=== PATIENT | male | born 1960 | race African-American/Black ===

== ENCOUNTER 2017-03-30 07:57 | Emergency (ER) | payer BC, OTHER ==
[~2017-03-30] VITALS: Ht 182.9 cm; Wt 86.2 kg
[2017-03-30] MEDS ORDERED: NALOXONE HCL 0.4 MG/ML VIAL IV ONE (08:15)
[2017-03-30] MEDS ORDERED: NALOXONE HCL 0.4 MG/ML VIAL ONE (08:43)
[2017-03-30 10:01] LABS: Basophils # (auto) 0.1 uL; Basophils % (auto) 0.6 % (0.0-2.0); DEFINITIVE VIEW TRANSMISSION; Eosinophils # (auto) 0 uL; Eosinophils % (auto) 0.3 % (0.0-7.0); Hematocrit 41.7 % (41.0-53.0); Hemoglobin 13.9 g/dL (13.5-17.5); Lymphocytes # (auto) 2.3 uL; Lymphocytes % (auto) 19.7 % (10.0-50.0); Mean Corpuscular Hemoglobin 33.8 pg (28.0-32.0); Mean Corpuscular Hgb Conc. 33.4 g/dL (32.0-36.0); Mean Platelet Volume 8.1 fL (7.4-10.4); Monocytes # (auto) 1.7 uL; Monocytes % (auto) 14.9 % (0.0-12.0); Neutrophils # (auto) 7.5 uL; Neutrophils % (auto) 64.5 % (37.0-80.0); Platelet Count (auto) 677 10^3/uL (140-450); Red Cell Distribution Width 14.5 % (11.6-16.0); White Blood Cell 11.7 10^3/uL (4.4-10.8)
[2017-03-30] MEDS ORDERED: ETOMIDATE (2MG/ML) 20ML VIAL IV ONE (10:38)
[2017-03-30] MEDS ORDERED: SUCCINYLCHOLINE CHLORIDE 20 MG/ML 10ML VIAL IV ONE (10:38)
[2017-03-30 10:54] LABS: Albumin 2.9 g/dL (3.4-5.0); Alkaline Phosphatase 135 U/L (45-117); Anion Gap 13 (5-15); Aspartate Aminotransferase 45 U/L (15-37); BUN/Creatinine Ratio 10.3; Bilirubin, Total 0.7 mg/dL (0.2-1.0); Blood Urea Nitrogen 7 mg/dL (7-18); Calcium 9.3 mg/dL (8.5-10.1); Carbon Dioxide 25 mmol/L (21-32); Chloride 102 mmol/L (98-107); GFR African American 155 mL/min; GFR Non-African American 128 mL/min; Glucose 155 mg/dL (74-106); Sodium 140 mmol/L (136-145); Total Protein 7.9 g/dL (6.4-8.2)
[2017-03-30 10:57] VITALS: BP 147/97
[2017-03-30] MEDS ORDERED: PROPOFOL 100 ML IV ONE (11:02)
[2017-03-30 11:05] LABS: Potassium 2.9 mmol/L (3.5-5.1)
[2017-03-30] MEDS ORDERED: PROPOFOL 10 MG/ML 20 ML IV ONE (11:15)
== END 2017-03-30 11:20 | disposition short-term general hospital (02) ==
LOC: ER 07:57 → EDBD 07:57 → ER 11:20
DX: G93.41 Metabolic encephalopathy (principal); R41.82 Altered mental status, unspecified; I62.9 Nontraumatic intracranial hemorrhage, unspecified; E11.9 Type 2 diabetes mellitus without complications; I10 Essential (primary) hypertension; E78.5 Hyperlipidemia, unspecified
CPT/HCPCS: 31500; 36415; 51702; 70450; 71010; 80053; 80185; 80320; 82962; 83735; 84484; 85025; 93005; 99291; J0330; J2310; J2704

== ENCOUNTER 2017-04-25 19:19 | Emergency (ER) | payer OTHER ==
[~2017-04-25] VITALS: Ht 182.9 cm; Wt 79.4 kg
[2017-04-25 20:34] LABS: Basophils # (auto) 0.1 uL; Basophils % (auto) 0.9 % (0.0-2.0); Eosinophils # (auto) 0.2 uL; Eosinophils % (auto) 1.1 % (0.0-7.0); Hematocrit 37.4 % (41.0-53.0); Hemoglobin 12.6 g/dL (13.5-17.5); Lymphocytes # (auto) 2.4 uL; Lymphocytes % (auto) 17.6 % (10.0-50.0); Mean Corpuscular Hemoglobin 33.6 pg (28.0-32.0); Mean Corpuscular Hgb Conc. 33.8 g/dL (32.0-36.0); Mean Corpuscular Volume 99.4 fL (80.0-100.0); Mean Platelet Volume 7.2 fL (7.4-10.4); Monocytes # (auto) 1.2 uL; Monocytes % (auto) 9.1 % (0.0-12.0); Neutrophils # (auto) 9.6 uL; Neutrophils % (auto) 71.3 % (37.0-80.0); Platelet Count (auto) 494 10^3/uL (140-450); Red Cell Distribution Width 13.2 % (11.6-16.0); White Blood Cell 13.5 10^3/uL (4.4-10.8)
[2017-04-25 20:59] LABS: Albumin 2.9 g/dL (3.4-5.0); Alkaline Phosphatase 169 U/L (45-117); Anion Gap 8 (5-15); Aspartate Aminotransferase 19 U/L (15-37); BUN/Creatinine Ratio 21.8; Bilirubin, Total 0.2 mg/dL (0.2-1.0); Blood Urea Nitrogen 12 mg/dL (7-18); Calcium 8.6 mg/dL (8.5-10.1); Carbon Dioxide 23 mmol/L (21-32); Chloride 105 mmol/L (98-107); GFR African American 197 mL/min; GFR Non-African American 163 mL/min; Glucose 63 mg/dL (74-106); Magnesium 2.1 mg/dL (1.6-2.6); Potassium 3.8 mmol/L (3.5-5.1); Sodium 136 mmol/L (136-145); Total Protein 7.7 g/dL (6.4-8.2)
[2017-04-25 21:27] LABS: INR 1.12 (0.9-1.15); Prothrombin Time 12.2 sec (9.37-12.3)
[2017-04-25 23:11] VITALS: BP 100/69
== END 2017-04-25 23:18 | disposition short-term general hospital (02) ==
LOC: ER 19:24
DX: I62.9 Nontraumatic intracranial hemorrhage, unspecified (principal); I69.920 Aphasia following unspecified cerebrovascular disease; F17.210 Nicotine dependence, cigarettes, uncomplicated; I10 Essential (primary) hypertension; E11.9 Type 2 diabetes mellitus without complications; E78.5 Hyperlipidemia, unspecified
CPT/HCPCS: 36415; 70450; 80053; 80320; 83735; 84484; 85025; 85610; 85730; 93005

== ENCOUNTER 2017-07-08 20:07 | Emergency (ER) | payer OTHER ==
[~2017-07-08] VITALS: Ht 188 cm; Wt 81.6 kg
[2017-07-08 22:34] LABS: Basophils # (auto) 0.2 uL; Basophils % (auto) 2.6 % (0.0-2.0); CONDITION Y; Eosinophils # (auto) 0.2 uL; Eosinophils % (auto) 2.3 % (0.0-7.0); Hemoglobin 15.5 g/dL (13.5-17.5); Lymphocytes # (auto) 3.4 uL; Lymphocytes % (auto) 40.5 % (10.0-50.0); Mean Corpuscular Hgb Conc. 33.6 g/dL (32.0-36.0); Mean Platelet Volume 8.2 fL (7.4-10.4); Monocytes # (auto) 0.9 uL; Monocytes % (auto) 10.3 % (0.0-12.0); Neutrophils # (auto) 3.8 uL; Neutrophils % (auto) 44.3 % (37.0-80.0); Platelet Count (auto) 315 10^3/uL (140-450); Red Cell Distribution Width 14.2 % (11.6-16.0); White Blood Cell 8.5 10^3/uL (4.4-10.8)
[2017-07-08 22:50] LABS: INR 1.05 (0.9-1.15); Partial Thromboplastin Time 26.6 sec (22.64-33.71); Prothrombin Time 11.5 sec (9.37-12.3)
[2017-07-08 23:10] LABS: Magnesium 2.3 mg/dL (1.6-2.6)
[2017-07-08 23:23] LABS: Albumin 2.6 g/dL (3.4-5.0); Alkaline Phosphatase 105 U/L (45-117); Anion Gap 10 (5-15); Aspartate Aminotransferase 22 U/L (15-37); BUN/Creatinine Ratio 11.7; Bilirubin, Total 0.2 mg/dL (0.2-1.0); Blood Urea Nitrogen 7 mg/dL (7-18); Calcium 8.1 mg/dL (8.5-10.1); Carbon Dioxide 25 mmol/L (21-32); Chloride 109 mmol/L (98-107); GFR African American 179 mL/min; GFR Non-African American 148 mL/min; Glucose 114 mg/dL (74-106); Potassium 3.1 mmol/L (3.5-5.1); Sodium 144 mmol/L (136-145); Total Protein 7.5 g/dL (6.4-8.2)
[2017-07-08 23:48] VITALS: BP 125/77
== END 2017-07-09 00:30 | disposition home or self-care (01) ==
LOC: EDBD 20:07 → ER 20:07 → EDUNIT# 20:07 → ER 07-09 00:29
DX: G45.9 Transient cerebral ischemic attack, unspecified (principal); E11.9 Type 2 diabetes mellitus without complications; E78.5 Hyperlipidemia, unspecified; I10 Essential (primary) hypertension; F17.210 Nicotine dependence, cigarettes, uncomplicated; R41.82 Altered mental status, unspecified; R41.0 Disorientation, unspecified
CPT/HCPCS: 36415; 70450; 71010; 80053; 83735; 84484; 85025; 85610; 85730; 93005

== ENCOUNTER 2017-10-12 09:39 | Emergency (ER) | payer OTHER ==
[~2017-10-12] VITALS: Ht 180.3 cm; Wt 90.7 kg
[2017-10-12 10:46] LABS: Albumin 3.7 g/dL (3.4-5.0); Anion Gap 11 (5-15); Aspartate Aminotransferase 172 U/L (15-37); BUN/Creatinine Ratio 18.1; Blood Urea Nitrogen 13 mg/dL (7-18); Calcium 9.4 mg/dL (8.5-10.1); Carbon Dioxide 22 mmol/L (21-32); Chloride 102 mmol/L (98-107); GFR African American 144 mL/min; GFR Non-African American 119 mL/min; Glucose 189 mg/dL (74-106); Magnesium 1.7 mg/dL (1.6-2.6); Potassium 3.9 mmol/L (3.5-5.1); Sodium 135 mmol/L (136-145)
[2017-10-12 10:51] LABS: Alkaline Phosphatase 128 U/L (45-117); Bilirubin, Total 1.2 mg/dL (0.2-1.0)
[2017-10-12 11:28] LABS: Basophils # (auto) 0 uL; Basophils % (auto) 0.4 % (0.0-2.0); Eosinophils # (auto) 0 uL; Eosinophils % (auto) 0.2 % (0.0-7.0); Hematocrit 48.4 % (41.0-53.0); Hemoglobin 15.8 g/dL (13.5-17.5); Lymphocytes # (auto) 0.8 uL; Lymphocytes % (auto) 8.8 % (10.0-50.0); Mean Corpuscular Hemoglobin 34.6 pg (28.0-32.0); Mean Corpuscular Hgb Conc. 32.7 g/dL (32.0-36.0); Mean Corpuscular Volume 105.6 fL (80.0-100.0); Mean Platelet Volume 8.6 fL (6.9-10.8); Monocytes # (auto) 0.9 uL; Monocytes % (auto) 9.9 % (0.0-12.0); Neutrophils # (auto) 7.5 uL; Neutrophils % (auto) 80.7 % (37.0-80.0); Nucleated Red Blood Cells % 0.1 %; Platelet Count (auto) 155 10^3/uL (140-450); White Blood Cell 9.3 10^3/uL (4.4-10.8)
[2017-10-12 11:30] LABS: Urine RBC None Seen /hpf (0 - 3)
[2017-10-12 11:42] LABS: Urine Bilirubin Negative (Negative); Urine Blood 1+ /uL (Negative); Urine Color Yellow (Yellow); Urine Glucose 3+ mg/dL (Normal); Urine Hyaline Cast FEW /lpf (0 - 2); Urine Ketone 1+ (Negative); Urine Nitrite Negative (Negative); Urine Urobilinogen Normal (Negative); Urine pH 5.5 (5.0-8.0)
[2017-10-12 12:23] VITALS: BP 148/83
== END 2017-10-12 12:27 | disposition home or self-care (01) ==
LOC: ER 09:39 → EDBD 09:39 → ER 12:27
DX: G45.9 Transient cerebral ischemic attack, unspecified (principal); E86.0 Dehydration; E11.9 Type 2 diabetes mellitus without complications; E78.5 Hyperlipidemia, unspecified; I10 Essential (primary) hypertension; F17.210 Nicotine dependence, cigarettes, uncomplicated
CPT/HCPCS: 36415; 70450; 71010; 80053; 80307; 81001; 83735; 84484; 93005

== ENCOUNTER 2018-08-23 10:10 | Emergency (ER) | payer OTHER ==
[~2018-08-23] VITALS: Ht 190.5 cm; Wt 81.6 kg
[2018-08-23] MEDS ORDERED: SODIUM CHLORIDE 0.9% 1,000 ML IV ONE (10:16)
[2018-08-23 10:54] LABS: Basophils # (auto) 0 uL; Basophils % (auto) 0.1 % (0.0-2.0); Eosinophils # (auto) 0 uL; Hematocrit 49.4 % (41.0-53.0); Hemoglobin 16.5 g/dL (13.5-17.5); Lymphocytes # (auto) 0.4 uL; Lymphocytes % (auto) 2.6 % (10.0-50.0); Mean Corpuscular Hemoglobin 33.6 pg (28.0-32.0); Mean Corpuscular Hgb Conc. 33.4 g/dL (32.0-36.0); Mean Corpuscular Volume 100.7 fL (80.0-100.0); Monocytes % (auto) 6.8 % (0.0-12.0); Neutrophils # (auto) 13.2 uL; Neutrophils % (auto) 90.5 % (37.0-80.0); Nucleated Red Blood Cells % 0.1 %; Platelet Count (auto) 177 10^3/uL (140-450); Red Blood Cells 4.91 10^6/uL (4.5-5.90); Red Cell Distribution Width 13.7 % (11.8-14.3); White Blood Cell 14.6 10^3/uL (4.4-10.8)
[2018-08-23 11:17] LABS: Alanine Aminotransferase 86 U/L (16-61); Albumin 3.9 g/dL (3.4-5.0); Alkaline Phosphatase 121 U/L (45-117); Anion Gap 15 (5-15); Aspartate Aminotransferase 158 U/L (15-37); BUN/Creatinine Ratio 6.5; Bilirubin, Total 0.8 mg/dL (0.2-1.0); Blood Alcohol < 3.0 mg/dL (0-5); Blood Urea Nitrogen 8 mg/dL (7-18); Carbon Dioxide 16 mmol/L (21-32); Chloride 109 mmol/L (98-107); GFR African American 78 mL/min; GFR Non-African American 64 mL/min; Glucose 215 mg/dL (74-106); Potassium 3.9 mmol/L (3.5-5.1); Sodium 140 mmol/L (136-145); Total Protein 8.6 g/dL (6.4-8.2)
[2018-08-23 12:13] LABS: Urine WBC None Seen /hpf (0 - 3)
[2018-08-23] MEDS ORDERED: LABETALOL HCL 5 MG/ML ML 20ML VIAL IV ONE (12:15)
[2018-08-23 12:38] VITALS: BP 136/90
[2018-08-23 12:41] LABS: Alcohol, Urine < 3.0 mg/dL (0-5); Amphetamine Screen, Urine NEGATIVE (NEGATIVE); Barbiturate Scree,Urine NEGATIVE (NEGATIVE); Benzodiazephine Screen, Urine NEGATIVE (NEGATIVE); Cannabinoid Screen, Urine NEGATIVE (NEGATIVE); Cocaine Screen, Urine NEGATIVE (NEGATIVE); Opiate Scree,Urine NEGATIVE (NEGATIVE); Phencyclidine Screen, Urine NEGATIVE (NEGATIVE)
[2018-08-23 12:53] LABS: Urine Bacteria NONE SEEN /hpf (None Seen); Urine Blood TRACE /uL (Negative); Urine Specific Gravity 1.015 (1.001-1.035)
== END 2018-08-23 12:49 | disposition short-term general hospital (02) ==
LOC: EDBD 10:10 → ER 10:10
DX: S00.81XA Abrasion of other part of head, initial encounter (principal); I63.9 Cerebral infarction, unspecified; M25.532 Pain in left wrist; R53.1 Weakness; E11.9 Type 2 diabetes mellitus without complications; E78.5 Hyperlipidemia, unspecified; I10 Essential (primary) hypertension; R51 Headache; F10.10 Alcohol abuse, uncomplicated; F17.210 Nicotine dependence, cigarettes, uncomplicated; W19.XXXA Unspecified fall, initial encounter; Y93.89 Activity, other specified; Y92.89 Other specified places as the place of occurrence of the external cause; Y99.8 Other external cause status
CPT/HCPCS: 36415; 70450; 73030; 73100; 80053; 80307; 80320; 81001; 85025; 94761; 96374

== ENCOUNTER 2018-11-17 11:56 | Inpatient (IN) | payer SELFPAY ==
[~2018-11-17] VITALS: Ht 182.9 cm; Wt 79.4 kg
[2018-11-17] MEDS ORDERED: SODIUM CHLORIDE 0.9% 1,000 ML IVB ONE (12:57)
[2018-11-17 13:08] LABS: Basophils # (auto) 0 uL; Basophils % (auto) 0.3 % (0.0-2.0); Eosinophils # (auto) 0 uL; Lymphocytes # (auto) 0.4 uL; Neutrophils # (auto) 11.1 uL
[2018-11-17 13:10] LABS: Hematocrit 49.9 % (41.0-53.0); Hemoglobin 16.5 g/dL (13.5-17.5); Lymphocytes % (auto) 3.2 % (10.0-50.0); Mean Corpuscular Hemoglobin 34.9 pg (28.0-32.0); Mean Corpuscular Volume 105.8 fL (80.0-100.0); Monocytes # (auto) 0.6 uL; Neutrophils % (auto) 91.5 % (37.0-80.0); Nucleated Red Blood Cells % 0.1 %; Platelet Count (auto) 143 10^3/uL (140-450); Red Blood Cells 4.72 10^6/uL (4.5-5.90); Red Cell Distribution Width 13.6 % (11.8-14.3); White Blood Cell 12.1 10^3/uL (4.4-10.8)
[2018-11-17 13:31] LABS: Alanine Aminotransferase 64 U/L (16-61); Albumin 4.3 g/dL (3.4-5.0); Anion Gap 20 (5-15); Aspartate Aminotransferase 84 U/L (15-37); BUN/Creatinine Ratio 7.4; Blood Alcohol < 3.0 mg/dL (0-5); Blood Urea Nitrogen 10 mg/dL (7-18); Calcium 9.1 mg/dL (8.5-10.1); Carbon Dioxide 16 mmol/L (21-32); Chloride 102 mmol/L (98-107); GFR African American 69 mL/min; GFR Non-African American 57 mL/min; Glucose 205 mg/dL (74-106); Potassium 3.8 mmol/L (3.5-5.1); Sodium 138 mmol/L (136-145)
[2018-11-17 13:36] LABS: Alkaline Phosphatase 132 U/L (45-117); Bilirubin, Total 0.8 mg/dL (0.2-1.0)
[2018-11-17 14:11] LABS: Urine Bacteria NONE SEEN /hpf (None Seen); Urine Blood 2+ /uL (Negative); Urine Hyaline Cast FEW /lpf (0 - 2); Urine Mucus FEW (None Seen); Urine Specific Gravity 1.011 (1.001-1.035); Urine WBC 2 /hpf (0 - 3)
[2018-11-17 14:23] LABS: Alcohol, Urine < 3.0 mg/dL (0-5); Amphetamine Screen, Urine NEGATIVE (NEGATIVE); Barbiturate Scree,Urine NEGATIVE (NEGATIVE); Benzodiazephine Screen, Urine NEGATIVE (NEGATIVE); Cannabinoid Screen, Urine NEGATIVE (NEGATIVE); Cocaine Screen, Urine NEGATIVE (NEGATIVE); Opiate Scree,Urine NEGATIVE (NEGATIVE); Phencyclidine Screen, Urine NEGATIVE (NEGATIVE)
[2018-11-17 14:23] LABS: INR 1.05 (0.9-1.15); Partial Thromboplastin Time 27.2 sec (23.78-33.04); Prothrombin Time 11.2 sec (9.27-12.13)
[2018-11-17] MEDS ORDERED: chlordiazePOXIDE HCL 25 MG CAP PO PRN (14:45)
[2018-11-17] MEDS ORDERED: LABETALOL HCL 5 MG/ML ML 20ML VIAL IV PRN (14:45)
[2018-11-17] MEDS ORDERED: LACTULOSE 20Gm/30ML SOLN PO PRN (14:45)
[2018-11-17] MEDS ORDERED: PROMETHAZINE HCL 25 MG/ML 1ML IV PRN (14:45)
[2018-11-17] MEDS ORDERED: NITROGLYCERIN 0.4 MG SL TAB SL PRN (14:45)
[2018-11-17] MEDS ORDERED: TEMAZEPAM 15 MG CAP PO PRN (14:45)
[2018-11-17] MEDS ORDERED: MORPHINE SULFATE 4 MG/ML SYR/VIAL IV PRN ×3 (14:45)
[2018-11-17] MEDS ORDERED: THIAMINE 100mg/ml INJ (200mg/2ml VIAL) IV ONE (14:45)
[2018-11-17] MEDS ORDERED: LORazepam 0.5 MG TAB PO PRN ×2 (14:45→18:45)
[2018-11-17] MEDS ORDERED: LORazepam 2MG/ML-1ML VIAL IV PRN (14:45)
[2018-11-17] MEDS ORDERED: DEXTROSE (50%) 50ML SYRG IV PRN (14:45)
[2018-11-17 15:22] LABS: Folate (Folic Acid) 10.62 ng/mL (5.38-24)
[2018-11-17 15:25] LABS: Cholesterol 294 mg/dL (< 200)
[2018-11-17 15:28] LABS: Creatine Kinase IFCC 384 U/L (39-308); HDL Cholesterol 112 mg/dL (40-59); LDL Cholesterol 165 mg/dL (< 100); Triglycerides 137 mg/dL (< 150)
[2018-11-17] MEDS: SODIUM CHLORIDE 0.9% 1,000 ML IV SCH (16:50)
[2018-11-17] MEDS: ACCU-CHEK COMFORT CURVE STRIP VI SCH ×2 (17:36→22:00)
[2018-11-17] MEDS: InsuLIN REG 1unit/0.01ml Soln (100units/ml) SC SCH ×2 (17:40→22:00)
[2018-11-17] MEDS: chlordiazePOXIDE HCL 5 MG CAP PO SCH (17:56)
[2018-11-17] MEDS ORDERED: LEVETIRACETAM INJ 1,000 MG in D5W 5% 100 ML IV ONE (18:45)
[2018-11-17] MEDS ORDERED: ATORVASTATIN 20 MG TAB PO SCH (22:00)
[2018-11-17] MEDS: LEVETIRACETAM 500 MG TAB PO SCH (22:00)
[2018-11-18] MEDS: chlordiazePOXIDE HCL 5 MG CAP PO SCH ×3 (00:13→12:09)
[2018-11-18] MEDS: SODIUM CHLORIDE 0.9% 1,000 ML IV SCH ×2 (00:40→11:13)
[2018-11-18 05:58] LABS: Basophils # (auto) 0 uL; Eosinophils # (auto) 0 uL; Eosinophils % (auto) 0.5 % (0.0-7.0); Hemoglobin 14.6 g/dL (13.5-17.5); Mean Corpuscular Hemoglobin 35.5 pg (28.0-32.0); Monocytes # (auto) 0.8 uL; Neutrophils # (auto) 5.8 uL
[2018-11-18 06:02] VITALS: BP 109/76
[2018-11-18 06:02] LABS: Basophils % (auto) 0.5 % (0.0-2.0); Hematocrit 41.9 % (41.0-53.0); Lymphocytes # (auto) 1.2 uL; Mean Corpuscular Hgb Conc. 34.7 g/dL (32.0-36.0); Mean Corpuscular Volume 102.3 fL (80.0-100.0); Monocytes % (auto) 10.1 % (0.0-12.0); Neutrophils % (auto) 73.9 % (37.0-80.0); Platelet Count (auto) 102 10^3/uL (140-450); Red Cell Distribution Width 13.2 % (11.8-14.3); White Blood Cell 7.8 10^3/uL (4.4-10.8)
[2018-11-18 06:25] LABS: Potassium 3.1 mmol/L (3.5-5.1)
[2018-11-18 06:32] LABS: Albumin 3.4 g/dL (3.4-5.0); BUN/Creatinine Ratio 13.8; Bilirubin, Total 1.9 mg/dL (0.2-1.0); Calcium 8.4 mg/dL (8.5-10.1)
[2018-11-18] MEDS: InsuLIN REG 1unit/0.01ml Soln (100units/ml) SC SCH ×3 (06:35→16:58)
[2018-11-18] MEDS: ACCU-CHEK COMFORT CURVE STRIP VI SCH ×3 (06:35→16:58)
[2018-11-18] MEDS: LEVETIRACETAM 500 MG TAB PO SCH (09:51)
[2018-11-18] MEDS ORDERED: PANTOPRAZOLE 40 MG TAB PO SCH (10:00)
[2018-11-18] MEDS ORDERED: ASPirin 81 mg TAB PO SCH (10:00)
[2018-11-18] MEDS ORDERED: ENOXAPARIN SOD 40 MG/0.4 ML SYRINGE SC SCH (10:00)
[2018-11-18] MEDS ORDERED: THIAMINE 100mg/ml INJ (200mg/2ml VIAL) IV SCH (10:00)
--- NOTE | 2018-11-18 12:30 | NUR ---
PER ADMITTING AND [facility] PATIENT'S INSURANCE TERMED ON 09-30-2018.
--- NOTE | 2018-11-18 15:20 | NUR ---
EEG COMPLETED AT BEDSIDE. RN JROD x [phone] NOTIFIED.
--- NOTE | 2018-11-18 17:29 | NUR ---
PT DECLINED P.T. BECAUSE HE WAS BEING DISCHARGED HOME.
--- NOTE | 2018-11-18 18:10 | NUR ---
Discharge instructions given as ordered. Encourage to follow up with PMD as instructed. All questions and concerns addressed. Patient verbalized understanding. Medication reconciliation form completed and copy given to patient. IV removed with catheter intact, pressure dressing applied, zendejas catheter removed. Telemetry unit returned to ICU. Patient taken to vehicle via wheelchair with all personal belongings, accompanied by staff and family member. No distress noted at time of departure.
== END 2018-11-18 18:00 | disposition home health service (06) | DRG 101 ==
LOC: EDBD 11:56 → ER 12:00 → TELE 14:36 → TELE-CENTR 11-18 08:20
PROVIDERS: ADMIT Internal Medicine; ATTEND Internal Medicine
DX: G40.401 Other generalized epilepsy and epileptic syndromes, not intractable, with status epilepticus (principal); N17.9 Acute kidney failure, unspecified; I69.351 Hemiplegia and hemiparesis following cerebral infarction affecting right dominant side; D72.829 Elevated white blood cell count, unspecified; I10 Essential (primary) hypertension; E78.5 Hyperlipidemia, unspecified; E86.0 Dehydration; F10.20 Alcohol dependence, uncomplicated; E11.9 Type 2 diabetes mellitus without complications
CPT/HCPCS: 36415; 70450; 71045; 80053; 80061; 80307; 80320; 81001; 82550; 82607; 82746; 82962; 83036; 83735; 84443; 84484; 85025; 85610; 85730; 93005; 93306; 93886; 94761; 95819; G0378; J1815; J7060

== ENCOUNTER 2018-12-26 10:01 | Emergency (ER) | payer SELFPAY ==
[~2018-12-26] VITALS: Ht 185.4 cm; Wt 83.9 kg
[2018-12-26] MEDS ORDERED: LORazepam 2MG/ML-1ML VIAL ONE (10:31)
[2018-12-26] MEDS ORDERED: SODIUM CHLORIDE 0.9% 500 ML IVB ONE (10:32)
[2018-12-26] MEDS ORDERED: LORazepam 2MG/ML-1ML VIAL IV ONE (10:45)
[2018-12-26] MEDS ORDERED: LEVETIRACETAM INJ 1,000 MG in D5W 5% 100 ML IV ONE (10:45)
[2018-12-26 11:06] LABS: Eosinophils # (auto) 0 uL; Hemoglobin 15.9 g/dL (13.5-17.5); Lymphocytes # (auto) 0.8 uL
[2018-12-26 11:07] LABS: Basophils # (auto) 0.1 uL; Basophils % (auto) 0.7 % (0.0-2.0); Hematocrit 47.2 % (41.0-53.0); Lymphocytes % (auto) 11.7 % (10.0-50.0); Mean Corpuscular Hemoglobin 35.7 pg (28.0-32.0); Mean Corpuscular Hgb Conc. 33.6 g/dL (32.0-36.0); Mean Corpuscular Volume 106.1 fL (80.0-100.0); Monocytes # (auto) 0.8 uL; Monocytes % (auto) 10.9 % (0.0-12.0); Neutrophils # (auto) 5.4 uL; Neutrophils % (auto) 76.7 % (37.0-80.0); Nucleated Red Blood Cells % 0.1 %; Platelet Count (auto) 133 10^3/uL (140-450); Red Blood Cells 4.45 10^6/uL (4.5-5.90); Red Cell Distribution Width 13.8 % (11.8-14.3); White Blood Cell 7.1 10^3/uL (4.4-10.8)
[2018-12-26 11:15] LABS: Alanine Aminotransferase 315 U/L (16-61); Albumin 3.8 g/dL (3.4-5.0); Anion Gap 26 (5-15); Blood Urea Nitrogen 11 mg/dL (7-18); Calcium 8.8 mg/dL (8.5-10.1); Carbon Dioxide 12 mmol/L (21-32); Chloride 98 mmol/L (98-107); Glucose 168 mg/dL (74-106); Magnesium 2.1 mg/dL (1.6-2.6); Potassium 3.5 mmol/L (3.5-5.1); Sodium 136 mmol/L (136-145)
[2018-12-26 11:19] LABS: INR 1.06 (0.9-1.15); Partial Thromboplastin Time 22.6 sec (23.78-33.04); Prothrombin Time 11.3 sec (9.27-12.13)
[2018-12-26 11:21] LABS: Alkaline Phosphatase 173 U/L (45-117); Aspartate Aminotransferase 719 U/L (15-37); BUN/Creatinine Ratio 11.3; Bilirubin, Total 1.5 mg/dL (0.2-1.0); GFR African American 102 mL/min; GFR Non-African American 84 mL/min; Total Protein 8.2 g/dL (6.4-8.2)
== END 2018-12-26 13:25 | disposition home or self-care (01) ==
LOC: EDBD 10:01 → ER 10:03
DX: R56.9 Unspecified convulsions (principal); F10.920 Alcohol use, unspecified with intoxication, uncomplicated; I10 Essential (primary) hypertension; F17.210 Nicotine dependence, cigarettes, uncomplicated; Y90.0 Blood alcohol level of less than 20 mg/100 ml
CPT/HCPCS: 36415; 70450; 71045; 80053; 80320; 83735; 84484; 85025; 85610; 85730; 94761; 96361; 96365; 96375; 99284; J1953; J2060; J7030; J7060

== ENCOUNTER 2019-01-27 10:25 | Emergency (ER) | payer MEDICAID, OTHER ==
[~2019-01-27] VITALS: Ht 185.4 cm; Wt 2.7 kg
[2019-01-27 12:48] VITALS: BP 130/96
== END 2019-01-27 13:23 | disposition home or self-care (01) ==
LOC: ER 10:25
DX: S62.306A Unspecified fracture of fifth metacarpal bone, right hand, initial encounter for closed fracture (principal); S62.644A Nondisplaced fracture of proximal phalanx of right ring finger, initial encounter for closed fracture; E78.5 Hyperlipidemia, unspecified; I10 Essential (primary) hypertension; F17.210 Nicotine dependence, cigarettes, uncomplicated; W19.XXXA Unspecified fall, initial encounter; Y93.89 Activity, other specified; Y99.8 Other external cause status; Y92.89 Other specified places as the place of occurrence of the external cause
CPT/HCPCS: 29125; 36415; 73130; 84550

== ENCOUNTER 2019-04-08 20:26 | Inpatient (IN) | payer MEDICAID ==
[~2019-04-08] VITALS: Ht 223.5 cm; Wt 79.5 kg
[2019-04-08 22:54] LABS: Basophils # (auto) 0 uL; Basophils % (auto) 0.1 % (0.0-2.0); Eosinophils # (auto) 0 uL; Monocytes # (auto) 0.9 uL; Monocytes % (auto) 9.8 % (0.0-12.0); Red Blood Cells 4.37 10^6/uL (4.5-5.90)
[2019-04-08 22:57] LABS: Hematocrit 46.6 % (41.0-53.0); Hemoglobin 15.7 g/dL (13.5-17.5); Lymphocytes # (auto) 0.4 uL; Lymphocytes % (auto) 3.9 % (10.0-50.0); Mean Corpuscular Hemoglobin 35.9 pg (28.0-32.0); Mean Corpuscular Hgb Conc. 33.6 g/dL (32.0-36.0); Mean Corpuscular Volume 106.8 fL (80.0-100.0); Neutrophils # (auto) 8.1 uL; Neutrophils % (auto) 86.2 % (37.0-80.0); Nucleated Red Blood Cells % 0.1 %; Platelet Count (auto) 129 10^3/uL (140-450); White Blood Cell 9.4 10^3/uL (4.4-10.8)
[2019-04-08 23:14] LABS: Albumin 3.8 g/dL (3.4-5.0); Calcium 9.2 mg/dL (8.5-10.1); Potassium 3.9 mmol/L (3.5-5.1)
[2019-04-08 23:17] LABS: BUN/Creatinine Ratio 9.4; Bilirubin, Total 1.3 mg/dL (0.2-1.0); Total Protein 8.1 g/dL (6.4-8.2)
[2019-04-09] MEDS ORDERED: SODIUM CHLORIDE 0.9% 500 ML IV ONE (00:17)
[2019-04-09] MEDS ORDERED: LORazepam 2MG/ML-1ML VIAL IV ONE (00:30)
[2019-04-09] MEDS ORDERED: LEVETIRACETAM 500 MG TAB PO ONE (00:30)
[2019-04-09] MEDS ORDERED: NEOMYCIN-BACITRACIN-POLYM 15GM TOP OINT TOP SCH (00:30)
[2019-04-09] MEDS ORDERED: THIAMINE 100mg/ml INJ (200mg/2ml VIAL) IV ONE (00:30)
[2019-04-09] MEDS ORDERED: LACTULOSE 20Gm/30ML SOLN PO ONE (05:15)
[2019-04-09 05:17] LABS: Urine Bacteria NONE SEEN /hpf (None Seen); Urine Blood 1+ /uL (Negative); Urine Specific Gravity 1.012 (1.001-1.035); Urine WBC 3 /hpf (0 - 3)
[2019-04-09] MEDS ORDERED: TEMAZEPAM 15 MG CAP PO PRN (05:30)
[2019-04-09] MEDS ORDERED: LORazepam 2MG/ML-1ML VIAL IV PRN (05:30)
[2019-04-09] MEDS ORDERED: ONDANSETRON HCL 4 MG/2 ML VIAL IV PRN (05:30)
[2019-04-09 07:19] VITALS: BP 112/75
[2019-04-09 08:00] VITALS: BP 127/73
--- NOTE | 2019-04-09 08:00 | NUR ---
Opening Shift Note Assumed care of patient, awake and alert to self and place. No S/S of distress/SOB or pain. Patient appears confused to situation, keeps taking clothes off and getting out of bed. Patient oriented to room and call light and encouraged to call if he needs anything. Instructed on POC and to call for assist PRN, will continue to monitor for changes Q1hr and PRN. Bed alarm on.
[2019-04-09] MEDS: LACTULOSE 20Gm/30ML SOLN PO SCH (10:00)
[2019-04-09] MEDS ORDERED: NEOMYCIN-BACITRACIN-POLYM 15GM TOP OINT TOP ONE (10:45)
[2019-04-09] MEDS: FAMOTIDINE 20 MG TAB PO SCH ×2 (10:54→22:09)
[2019-04-09] MEDS: amLODIPine BESYLATE 5 MG TAB PO SCH (10:54)
[2019-04-09] MEDS: LEVETIRACETAM 500 MG TAB PO SCH ×2 (10:54→22:09)
--- NOTE | 2019-04-09 11:15 | NUR ---
Family member at bedside.
[2019-04-09 13:00] VITALS: BP 128/91
[2019-04-09 17:01] VITALS: BP 121/72
--- NOTE | 2019-04-09 18:20 | NUR ---
Rounding Dr. Kuo at bedside.
--- NOTE | 2019-04-09 19:00 | NUR ---
Opening Shift Note Assumed care of patient, awake, alert and oriented x2. Sitter and family on bedside. No S/S of distress/SOB or pain. Instructed sitter and family on POC and to call for assist PRN Will continue to monitor for changes Q1hr and PRN.
[2019-04-09 20:06] LABS: Amphetamine Screen, Urine NEGATIVE (NEGATIVE); Barbiturate Scree,Urine NEGATIVE (NEGATIVE); Benzodiazephine Screen, Urine NEGATIVE (NEGATIVE); Cannabinoid Screen, Urine NEGATIVE (NEGATIVE); Cocaine Screen, Urine NEGATIVE (NEGATIVE); Opiate Scree,Urine NEGATIVE (NEGATIVE); Phencyclidine Screen, Urine NEGATIVE (NEGATIVE)
[2019-04-09 22:00] VITALS: BP 114/81
[2019-04-10 05:00] VITALS: BP 133/95
--- NOTE | 2019-04-10 07:50 | NUR ---
Opening Shift Note Assumed care of patient, awake and alert to person, place, and time. No S/S of distress/SOB or pain. Instructed on POC and to call for assist PRN, will continue to monitor for changes Q1hr and PRN. Sitter at bedside.
[2019-04-10 08:28] LABS: Hemoglobin 15.5 g/dL (13.5-17.5); Neutrophils # (auto) 4.2 uL; Nucleated Red Blood Cells % 0.1 %
[2019-04-10 08:30] LABS: Basophils # (auto) 0 uL; Basophils % (auto) 0.6 % (0.0-2.0); Eosinophils # (auto) 0.1 uL; Eosinophils % (auto) 0.8 % (0.0-7.0); Hematocrit 45.3 % (41.0-53.0); Lymphocytes # (auto) 1.3 uL; Lymphocytes % (auto) 19.4 % (10.0-50.0); Mean Corpuscular Hemoglobin 35.9 pg (28.0-32.0); Mean Corpuscular Hgb Conc. 34.2 g/dL (32.0-36.0); Mean Corpuscular Volume 105.1 fL (80.0-100.0); Monocytes % (auto) 15.7 % (0.0-12.0); Neutrophils % (auto) 63.5 % (37.0-80.0); Platelet Count (auto) 117 10^3/uL (140-450); Red Blood Cells 4.31 10^6/uL (4.5-5.90); Red Cell Distribution Width 12.8 % (11.8-14.3); White Blood Cell 6.6 10^3/uL (4.4-10.8)
[2019-04-10 08:48] LABS: BUN/Creatinine Ratio 12.5; Calcium 9.2 mg/dL (8.5-10.1); Potassium 3.3 mmol/L (3.5-5.1)
[2019-04-10 09:00] VITALS: BP 131/84
[2019-04-10] MEDS: LEVETIRACETAM 500 MG TAB PO SCH ×2 (09:41→22:06)
[2019-04-10] MEDS: FAMOTIDINE 20 MG TAB PO SCH ×2 (09:41→22:06)
[2019-04-10] MEDS: amLODIPine BESYLATE 5 MG TAB PO SCH (09:44)
[2019-04-10] MEDS: LACTULOSE 20Gm/30ML SOLN PO SCH (09:45)
--- NOTE | 2019-04-10 09:45 | NUR ---
Family members at bedside.
[2019-04-10] MEDS ORDERED: LACTULOSE 20Gm/30ML SOLN PO ONE (15:45)
[2019-04-10 17:35] VITALS: BP 116/92
--- NOTE | 2019-04-10 18:28 | NUR ---
Tele Psych Consult at bedside. She is requesting to be here for tele psych consult. She can be available anytime after 0800am.
--- NOTE | 2019-04-10 18:40 | NUR ---
Hospitalist Paged Hospitalist paged because patient is very confused and is trying to leave the room. at bedside and is unable to calm patient down. He is verbally abusive and is not listening or following instructions.
[2019-04-10] MEDS ORDERED: LORazepam 2MG/ML-1ML VIAL IV ONE ×2 (18:45→20:45)
--- NOTE | 2019-04-10 18:45 | NUR ---
Verbal Order Verbal order received from Dr. Matson for Ativan 1mg IV stat. Order read back and verified. Entered in
--- NOTE | 2019-04-10 19:10 | NUR ---
Patient more calm at this time. Sitting up at side of bed eating. and sitter in attendance.
--- NOTE | 2019-04-10 19:15 | NUR ---
Closing Note Care endorses to production shift supervisor RN.
--- NOTE | 2019-04-10 19:16 | NUR ---
Opening Shift Note Assumed care of patient, awake and confused. No S/S of distress/SOB or pain. Family and sitter on bedside Instructed sitter and family on POC and to call for assist PRN.Will continue to monitor for changes Q1hr and PRN.
--- NOTE | 2019-04-10 20:00 | NUR ---
Sitter is calling for help The patient is confused and non compliant trying to go out of the room. Reoriented pt and persuaded to lay in the bed.
--- NOTE | 2019-04-10 20:15 | NUR ---
Pt continue to be disoriented, pulling on his iv tube and trying to escape to the floor. Per charge nurse moved the patient to room 212B
--- NOTE | 2019-04-10 20:25 | NUR ---
Pt continuing to be non compliant, trying to escape to the floor. Security was called and hospitalist was paged. T98.2,BP 123/86, HR 117, RR17 SPO2 100%
[2019-04-10] MEDS ORDERED: diphenhdrAMINE HCL 50 MG/1 ML VL IV ONE (20:45)
--- NOTE | 2019-04-10 20:45 | NUR ---
Received and implemented orders from hospitalist.
--- NOTE | 2019-04-10 21:13 | NUR ---
Medication: Patient is restless and anxious. Tried to re-orient patient but patient unable to comprehend. Ativan 1 mg IV given per MD order.Will continue to monitor.
--- NOTE | 2019-04-10 21:50 | NUR ---
Pt still noncompliant and agitated trying to leave the bed and being at risk of fall. Paged hospitalist
[2019-04-10 22:00] VITALS: BP 125/92
--- NOTE | 2019-04-10 22:05 | NUR ---
Received order from hospitalist for Haldol 5 mg IM
--- NOTE | 2019-04-10 22:11 | NUR ---
5 mg Haldol IM given
[2019-04-10] MEDS ORDERED: HALOPERIDOL LACTATE 5 MG/ML INJ VIAL IM ONE (22:15)
[2019-04-10] MEDS ORDERED: LORazepam 2MG/ML-1ML VIAL IV PRN (22:45)
[2019-04-10] MEDS ORDERED: diphenhdrAMINE HCL 50 MG/1 ML VL IV PRN (22:45)
--- NOTE | 2019-04-10 22:45 | NUR ---
PRN orders were obtained. Pt continuing to be agitated and trying to go out of room . Pt at fall risk
--- NOTE | 2019-04-10 22:59 | NUR ---
Pt continuing to be agitated and confused.Sitter on bedside Reoriented and helped the pt to the bed. Soft MS restraint order was obtained from hospitalist.
--- NOTE | 2019-04-10 23:00 | NUR ---
Pt. placed in soft restraints Restraints placed,Pt. placed in soft restraints ALLYSON RODRIGUEZ extremely agitated, pulling at lines or tubes. All comfort measures failed including reorientation, pain management, decreased stimuli, diversions/distractions, family involvement, and bathroom necessity. notified and order for soft restraints obtained. Tryied to educae the confused on need for restraints, including safety precautions. Restraints placed, see Restraint assessment for further charting.
[2019-04-11] MEDS ORDERED: diphenhdrAMINE HCL 50 MG/1 ML VL IV ONE
--- NOTE | 2019-04-11 02:00 | NUR ---
Removed restraint. Pt is calm,not agitated, calm, collaborative and cooperative. Sitter on bedside BP137/92, HR 108, SPO2 100%
--- NOTE | 2019-04-11 04:00 | NUR ---
Patient remain calm and sleeping. Will continue to monitor.
[2019-04-11 05:00] VITALS: BP 115/81
[2019-04-11 07:11] LABS: Basophils # (auto) 0.1 uL; Eosinophils # (auto) 0.1 uL; Lymphocytes # (auto) 1.6 uL; Lymphocytes % (auto) 27.8 % (10.0-50.0); Neutrophils # (auto) 3.2 uL
[2019-04-11 07:14] LABS: Basophils % (auto) 1.5 % (0.0-2.0); Hematocrit 45.5 % (41.0-53.0); Hemoglobin 15.9 g/dL (13.5-17.5); Mean Corpuscular Hemoglobin 36.1 pg (28.0-32.0); Mean Corpuscular Hgb Conc. 34.8 g/dL (32.0-36.0); Mean Corpuscular Volume 103.7 fL (80.0-100.0); Monocytes # (auto) 0.8 uL; Monocytes % (auto) 13.3 % (0.0-12.0); Neutrophils % (auto) 56.4 % (37.0-80.0); Platelet Count (auto) 116 10^3/uL (140-450); Red Blood Cells 4.39 10^6/uL (4.5-5.90); Red Cell Distribution Width 12.9 % (11.8-14.3); White Blood Cell 5.7 10^3/uL (4.4-10.8)
[2019-04-11 07:25] LABS: Albumin 3.7 g/dL (3.4-5.0); BUN/Creatinine Ratio 17.1; Calcium 9.8 mg/dL (8.5-10.1); Potassium 3.5 mmol/L (3.5-5.1)
[2019-04-11 07:29] LABS: Bilirubin, Total 1.8 mg/dL (0.2-1.0); Total Protein 7.9 g/dL (6.4-8.2)
[2019-04-11] MEDS: LACTULOSE 20Gm/30ML SOLN PO SCH ×2 (09:27→17:42)
[2019-04-11] MEDS: LEVETIRACETAM 500 MG TAB PO SCH ×2 (09:28→21:15)
[2019-04-11] MEDS: FAMOTIDINE 20 MG TAB PO SCH ×2 (09:28→21:14)
[2019-04-11] MEDS: amLODIPine BESYLATE 5 MG TAB PO SCH (09:30)
[2019-04-11] MEDS ORDERED: LACTULOSE 20Gm/30ML SOLN PO SCH (10:00)
[2019-04-11 13:00] VITALS: BP 116/88
[2019-04-11 13:46] LABS: Hepatitis A Ab IgM Negative; Hepatitis B Surface Antigen Negative (Negative)
[2019-04-11 13:47] LABS: Hepatitis B Core IgM Negative; Hepatitis C Antibody Negative (Negative)
[2019-04-11 17:00] VITALS: BP 128/87
--- NOTE | 2019-04-11 17:24 | NUR ---
TELE PSYCH CONSULT COMPLETE. PSYCH RECOMMENDATIONS RECEIVED VIA FAX AND CLIPPED TO FRONT OF CHART.
--- NOTE | 2019-04-11 19:24 | NUR ---
Opening Shift Note Assumed care of patient, awake and alert x 3. No S/S of distress/SOB. Bed is in lowest position and locked. Call light within reach. Board updated. Tele box number matches monitor and leads are in correct placement. Sitter at bedside. Instructed on POC and to call for assist PRN, will continue to monitor for changes Q1hr and PRN.
--- NOTE | 2019-04-11 21:12 | NUR ---
IV Catheter occluded. Removed IV catheter intact and covered site with sterile gauze then covered with Coban. Inserted a 22 gauge catheter into a vein in the left forearm after 1 attempt. Secured site with tegaderm. Patient tolerated well.
[2019-04-11 22:00] VITALS: BP 134/97
[2019-04-12 04:36] VITALS: BP 130/86
--- NOTE | 2019-04-12 07:15 | NUR ---
Opening Shift Note Assumed care of patient, awake, alert, and oriented X4. Patient walking in room, sitter at bed side. No S/S of distress/SOB or pain. Instructed on POC and to call for assist PRN.
[2019-04-12 07:23] LABS: Basophils # (auto) 0 uL; Eosinophils # (auto) 0.1 uL; Hemoglobin 15.1 g/dL (13.5-17.5); Mean Corpuscular Hgb Conc. 34.5 g/dL (32.0-36.0); Neutrophils # (auto) 3.1 uL; White Blood Cell 5.4 10^3/uL (4.4-10.8)
[2019-04-12 07:26] LABS: Basophils % (auto) 0.9 % (0.0-2.0); Eosinophils % (auto) 2.5 % (0.0-7.0); Hematocrit 43.7 % (41.0-53.0); Lymphocytes # (auto) 1.2 uL; Lymphocytes % (auto) 22.1 % (10.0-50.0); Mean Corpuscular Volume 104.3 fL (80.0-100.0); Monocytes # (auto) 0.9 uL; Monocytes % (auto) 17.5 % (0.0-12.0); Platelet Count (auto) 125 10^3/uL (140-450); Red Blood Cells 4.18 10^6/uL (4.5-5.90); Red Cell Distribution Width 13.1 % (11.8-14.3)
[2019-04-12 07:36] LABS: INR 1.24 (0.9-1.15); Prothrombin Time 13.1 sec (9.27-12.13)
[2019-04-12 07:42] LABS: Albumin 3.4 g/dL (3.4-5.0); Calcium 9.6 mg/dL (8.5-10.1); Potassium 3.3 mmol/L (3.5-5.1)
[2019-04-12 07:46] LABS: BUN/Creatinine Ratio 15.9; Bilirubin, Total 1.5 mg/dL (0.2-1.0); Total Protein 7.5 g/dL (6.4-8.2)
[2019-04-12 09:00] VITALS: BP 126/88
[2019-04-12] MEDS: LEVETIRACETAM 500 MG TAB PO SCH (09:34)
[2019-04-12] MEDS: amLODIPine BESYLATE 5 MG TAB PO SCH (09:34)
[2019-04-12] MEDS: FAMOTIDINE 20 MG TAB PO SCH (09:34)
[2019-04-12] MEDS: LACTULOSE 20Gm/30ML SOLN PO SCH (09:35)
[2019-04-12] MEDS ORDERED: POTASSIUM CHL 10 Meq TABLET PO ONE (12:00)
--- NOTE | 2019-04-12 15:42 | NUR ---
FAMILY AT BEDSIDE Patient's spouse at bedside.
--- NOTE | 2019-04-12 17:18 | NUR ---
DISCHARGE Discharge instructions given as ordered. Encouraged to follow up with PMD, neurology and psychiatry as instructed. All questions and concerns addressed. Patient and spouse verbalized understanding. Medication reconciliation form completed and copy given to patient. IV removed with catheter intact and pressure dressing applied. Patient ambulated to vehicle with all personal belongings, accompanied by spouse. No distress noted at time of departure.
== END 2019-04-12 19:26 | disposition home or self-care (01) | DRG 442 ==
LOC: EDBD 20:26 → EDUNIT# 20:26 → ER 20:26 → OVERFLOW 04-09 05:42 → ER 04-09 05:58 → CENTRAL 04-09 05:58
PROVIDERS: ADMIT Nurse Practitioner; ATTEND Internal Medicine
DX: K72.90 Hepatic failure, unspecified without coma (principal); E72.20 Disorder of urea cycle metabolism, unspecified; R65.10 Systemic inflammatory response syndrome (SIRS) of non-infectious origin without acute organ dysfunction; G40.909 Epilepsy, unspecified, not intractable, without status epilepticus; F17.210 Nicotine dependence, cigarettes, uncomplicated; E78.5 Hyperlipidemia, unspecified; K76.0 Fatty (change of) liver, not elsewhere classified; F03.90 Unspecified dementia, unspecified severity, without behavioral disturbance, psychotic disturbance, mood disturbance, and anxiety; F10.10 Alcohol abuse, uncomplicated; R16.0 Hepatomegaly, not elsewhere classified; K76.9 Liver disease, unspecified; S81.801A Unspecified open wound, right lower leg, initial encounter; R19.7 Diarrhea, unspecified; G43.909 Migraine, unspecified, not intractable, without status migrainosus; R41.9 Unspecified symptoms and signs involving cognitive functions and awareness; I10 Essential (primary) hypertension; R41.82 Altered mental status, unspecified; M19.90 Unspecified osteoarthritis, unspecified site; X58.XXXA Exposure to other specified factors, initial encounter; Y93.89 Activity, other specified; Y92.89 Other specified places as the place of occurrence of the external cause; Y99.8 Other external cause status; Z79.899 Other long term (current) drug therapy; Z91.19 Patient's noncompliance with other medical treatment and regimen; G93.89 Other specified disorders of brain
CPT/HCPCS: 36415; 70450; 73562; 73590; 74176; 76705; 80048; 80053; 80061; 80074; 80307; 81001; 82140; 82150; 82542; 83036; 83690; 84443; 85025; 85610; 87045; 87899; 93005; 94761; 96361; 96374; 96375; G0378

== ENCOUNTER 2019-07-12 17:16 | Emergency (ER) | payer MEDICAID ==
[~2019-07-12] VITALS: Ht 188 cm; Wt 74.8 kg
[2019-07-12 18:22] VITALS: BP 141/91
[2019-07-12 18:27] LABS: Basophils # (auto) 0.1 uL; Eosinophils # (auto) 0 uL
[2019-07-12 18:30] LABS: Basophils % (auto) 0.9 % (0.0-2.0); Eosinophils % (auto) 0.4 % (0.0-7.0); Hematocrit 44.2 % (41.0-53.0); Lymphocytes # (auto) 0.8 uL; Lymphocytes % (auto) 11.2 % (10.0-50.0); Mean Corpuscular Hemoglobin 35.9 pg (28.0-32.0); Mean Corpuscular Hgb Conc. 33.9 g/dL (32.0-36.0); Mean Corpuscular Volume 105.7 fL (80.0-100.0); Monocytes # (auto) 0.9 uL; Monocytes % (auto) 13.3 % (0.0-12.0); Neutrophils % (auto) 74.2 % (37.0-80.0); Nucleated Red Blood Cells % 0.2 %; Platelet Count (auto) 178 10^3/uL (140-450); Red Blood Cells 4.18 10^6/uL (4.5-5.90); White Blood Cell 6.7 10^3/uL (4.4-10.8)
[2019-07-12] MEDS ORDERED: SODIUM CHLORIDE 0.9% 1,000 ML IV ONE (18:30)
[2019-07-12 18:44] LABS: Alanine Aminotransferase 59 U/L (16-61); Albumin 3.2 g/dL (3.4-5.0); Anion Gap 16 (5-15); Aspartate Aminotransferase 181 U/L (15-37); BUN/Creatinine Ratio 12.5; Blood Alcohol < 3.0 mg/dL (0-5); Blood Urea Nitrogen 10 mg/dL (7-18); Calcium 8.4 mg/dL (8.5-10.1); Carbon Dioxide 19 mmol/L (21-32); Chloride 106 mmol/L (98-107); GFR African American 127 mL/min; GFR Non-African American 105 mL/min; Glucose 167 mg/dL (74-106); Potassium 3.5 mmol/L (3.5-5.1); Sodium 141 mmol/L (136-145)
[2019-07-12 18:49] LABS: Alkaline Phosphatase 147 U/L (45-117); Bilirubin, Total 1.1 mg/dL (0.2-1.0); Total Protein 7.4 g/dL (6.4-8.2)
[2019-07-12 22:51] LABS: Alcohol, Urine < 3.0 mg/dL (0-5); Amphetamine Screen, Urine NEGATIVE (NEGATIVE); Barbiturate Scree,Urine NEGATIVE (NEGATIVE); Benzodiazephine Screen, Urine NEGATIVE (NEGATIVE); Cannabinoid Screen, Urine NEGATIVE (NEGATIVE); Cocaine Screen, Urine NEGATIVE (NEGATIVE); Opiate Scree,Urine NEGATIVE (NEGATIVE); Phencyclidine Screen, Urine NEGATIVE (NEGATIVE)
== END 2019-07-12 21:48 | disposition home or self-care (01) ==
LOC: EDUNIT# 17:16 → EDBD 17:16 → ER 17:38
DX: T67.5XXA Heat exhaustion, unspecified, initial encounter (principal); E78.5 Hyperlipidemia, unspecified; I10 Essential (primary) hypertension; F17.210 Nicotine dependence, cigarettes, uncomplicated; Z86.73 Personal history of transient ischemic attack (TIA), and cerebral infarction without residual deficits; X58.XXXA Exposure to other specified factors, initial encounter; Y93.89 Activity, other specified; Y99.8 Other external cause status; Y92.488 Other paved roadways as the place of occurrence of the external cause
CPT/HCPCS: 36415; 80053; 80307; 80320; 84484; 85025; 93005; 96360; 99284; J7030

== ENCOUNTER 2020-06-28 15:13 | Inpatient (IN) | payer MEDICARE, MEDICAID ==
[~2020-06-28] VITALS: Ht 185.4 cm; Wt 75.5 kg
[2020-06-28] MEDS ORDERED: SODIUM CHLORIDE 0.9% 1,000 ML IV ONE (15:21)
[2020-06-28 17:22] LABS: Basophils # (auto) 0.1 10 ^3/uL (0-0.2); Eosinophils # (auto) 0 10 ^3/uL (0-0.8); Eosinophils % (auto) 0.2 % (0.0-7.0)
[2020-06-28 17:25] LABS: Basophils % (auto) 0.5 % (0.0-2.0); Hematocrit 39.2 % (41.0-53.0); Hemoglobin 13.6 g/dL (13.5-17.5); Lymphocytes # (auto) 1.2 10 ^3/uL (0.4-5.4); Lymphocytes % (auto) 11.5 % (10.0-50.0); Mean Corpuscular Hemoglobin 37.6 pg (28.0-32.0); Mean Corpuscular Hgb Conc. 34.6 g/dL (32.0-36.0); Mean Corpuscular Volume 108.7 fL (80.0-100.0); Monocytes # (auto) 1.4 10 ^3/uL (0-1.3); Monocytes % (auto) 13.1 % (0.0-12.0); Neutrophils # (auto) 7.8 10 ^3/uL (1.6-8.6); Neutrophils % (auto) 74.7 % (37.0-80.0); Nucleated Red Blood Cells % 0.3 %; Platelet Count (auto) 162 10^3/uL (140-450); White Blood Cell 10.4 10^3/uL (4.4-10.8)
[2020-06-28 17:28] LABS: Albumin 1.5 g/dL (3.4-5.0); Anion Gap 8 (5-15); Blood Urea Nitrogen 8 mg/dL (7-18); Calcium 7.8 mg/dL (8.5-10.1); Carbon Dioxide 22 mmol/L (21-32); Chloride 92 mmol/L (98-107); Glucose 96 mg/dL (74-106); Potassium 4.3 mmol/L (3.5-5.1); Sodium 122 mmol/L (136-145)
[2020-06-28 17:31] LABS: Alanine Aminotransferase 86 U/L (16-61); Aspartate Aminotransferase 278 U/L (15-37); BUN/Creatinine Ratio 14.5; GFR African American 195 mL/min; GFR Non-African American 161 mL/min
[2020-06-28 17:33] LABS: Alkaline Phosphatase 189 U/L (45-117); Bilirubin, Total 18.8 mg/dL (0.2-1.0); Total Protein 6.6 g/dL (6.4-8.2)
[2020-06-28] MEDS ORDERED: SODIUM CHLORIDE 0.9% 500 ML IV ONE (17:45)
[2020-06-28] MEDS ORDERED: NITROGLYCERIN 0.4 MG SL TAB SL PRN (18:45)
[2020-06-28] MEDS ORDERED: LACTULOSE 20Gm/30ML SOLN PO SCH (18:45)
[2020-06-28] MEDS ORDERED: cefTRIAXone 1GM/50ML D5W 50 ML IV ONE (18:45)
[2020-06-28] MEDS ORDERED: MORPHINE SULF INJ 2 MG/ML SYRINGE 1ML IV PRN (18:45)
[2020-06-28] MEDS ORDERED: ONDANSETRON HCL 4 MG/2 ML VIAL IV PRN (18:45)
[2020-06-28] MEDS ORDERED: THIAMINE 100mg/ml INJ (200mg/2ml VIAL) IV ONE (19:00)
[2020-06-28 21:28] LABS: Urine Amorphous Crystal FEW /hpf (None Seen); Urine Bacteria NONE SEEN /hpf (None Seen); Urine Blood Negative /uL (Negative); Urine Mucus FEW (None Seen); Urine Specific Gravity 1.017 (1.001-1.035); Urine WBC <1 /hpf (0 - 3)
[2020-06-28 21:36] LABS: Amphetamine Screen, Urine NEGATIVE (NEGATIVE); Barbiturate Scree,Urine NEGATIVE (NEGATIVE); Benzodiazephine Screen, Urine NEGATIVE (NEGATIVE); Cannabinoid Screen, Urine NEGATIVE (NEGATIVE); Opiate Scree,Urine NEGATIVE (NEGATIVE); Phencyclidine Screen, Urine NEGATIVE (NEGATIVE)
[2020-06-28 21:42] LABS: Cocaine Screen, Urine NEGATIVE (NEGATIVE)
[2020-06-28 22:00] VITALS: BP 89/62
[2020-06-28] MEDS: FAMOTIDINE 20 MG TAB PO SCH (22:00)
--- NOTE | 2020-06-28 22:00 | NUR ---
Telemetry admit from ER ALLYSON RODRIGUEZ admitted to Telemetry unit after SBAR received. Patient oriented to Mitzi Barajas RN primary RN, unit, room, bed, and unit policies regarding patient care and visiting hours. Patient now on continuous telemetry monitoring, tele box # 60 and telemetry reading on arrival to unit is SR. Patient weighed by bedscale and encouraged to call if they need something. All questions and concerns addressed, will continue to monitor Note: []
[2020-06-28 22:29] LABS: INR 3.06 (0.9-1.15); Partial Thromboplastin Time 37.3 sec (23.64-32.05)
--- NOTE | 2020-06-28 22:30 | NUR ---
Patient confused and tried to get out of bed. Ripped gown and tele box. Reoriented to time, place and situation. HAILEY Ling made aware of the situation and the need for a sitter. Patient is high risk for fall
--- NOTE | 2020-06-28 22:35 | NUR ---
Transferred patient to . 278B with a sitter. Safety precaution in place, will continue to monitor
--- NOTE | 2020-06-28 23:25 | NUR ---
Spoke to patient's Carol and updated on patient's status
[2020-06-29] MEDS: metroNIDAZOLE 500MG/100ML 100 ML IV SCH ×2 (00:08→06:12)
[2020-06-29 00:40] VITALS: BP 90/60
[2020-06-29] MEDS ORDERED: ATOR10TA52 PO (01:34)
[2020-06-29] MEDS ORDERED: MULT-1018 PO (01:34)
[2020-06-29] MEDS ORDERED: B CO1TAB7 PO (01:34)
[2020-06-29] MEDS ORDERED: KEP500T PO (01:34)
[2020-06-29] MEDS ORDERED: CHOL20007 OR (01:34)
[2020-06-29] MEDS ORDERED: ASPI-543 PO (01:34)
[2020-06-29 02:18] VITALS: BP 90/60
[2020-06-29 05:00] VITALS: BP 99/67
[2020-06-29] MEDS: FUROSEMIDE 20 MG TAB PO SCH ×2 (06:00→17:17)
[2020-06-29 06:30] LABS: Basophils # (auto) 0.1 10 ^3/uL (0-0.2); Basophils % (auto) 0.6 % (0.0-2.0); Eosinophils # (auto) 0.1 10 ^3/uL (0-0.8); Eosinophils % (auto) 0.5 % (0.0-7.0); Hematocrit 39.5 % (41.0-53.0); Hemoglobin 13.9 g/dL (13.5-17.5); Lymphocytes % (auto) 9.4 % (10.0-50.0); Mean Corpuscular Hgb Conc. 35.1 g/dL (32.0-36.0); Mean Corpuscular Volume 108.3 fL (80.0-100.0); Monocytes # (auto) 1.2 10 ^3/uL (0-1.3); Monocytes % (auto) 11.1 % (0.0-12.0); Neutrophils # (auto) 8.2 10 ^3/uL (1.6-8.6); Neutrophils % (auto) 78.4 % (37.0-80.0); Nucleated Red Blood Cells % 0.2 %; Platelet Count (auto) 156 10^3/uL (140-450); Red Blood Cells 3.65 10^6/uL (4.5-5.90); Red Cell Distribution Width 14.2 % (11.8-14.3); White Blood Cell 10.5 10^3/uL (4.4-10.8)
[2020-06-29 06:49] LABS: Albumin 1.4 g/dL (3.4-5.0); BUN/Creatinine Ratio 17.6; Calcium 7.6 mg/dL (8.5-10.1); Potassium 3.8 mmol/L (3.5-5.1)
[2020-06-29 07:01] LABS: Bilirubin, Total 17.8 mg/dL (0.2-1.0); Total Protein 6.1 g/dL (6.4-8.2)
[2020-06-29 08:00] VITALS: BP 91/64
[2020-06-29] MEDS ORDERED: cefTRIAXone 1GM/50ML D5W 50 ML IV SCH (09:00)
[2020-06-29] MEDS: FAMOTIDINE 20 MG TAB PO SCH (09:02)
[2020-06-29] MEDS: SPIRONOLACTONE 25 MG TAB PO SCH (09:02)
[2020-06-29] MEDS: THIAMINE 100mg/ml INJ (200mg/2ml VIAL) IV SCH (09:03)
[2020-06-29] MEDS ORDERED: MULTIPLE VITAMINS W/ MINERALS TAB PO ONE (12:45)
[2020-06-29] MEDS ORDERED: SPIRONOLACTONE 25 MG TAB PO ONE (12:45)
[2020-06-29] MEDS ORDERED: FAMOTIDINE 20 MG TAB PO ONE (12:45)
[2020-06-29] MEDS ORDERED: PANTOPRAZOLE 40 MG TAB PO ONE (12:45)
[2020-06-29] MEDS ORDERED: levETIRAcetam 500 MG TAB PO ONE (12:45)
[2020-06-29] MEDS ORDERED: FOLIC ACID 1 MG TAB PO ONE (12:45)
[2020-06-29] MEDS ORDERED: FUROSEMIDE 20 MG TAB PO ONE (12:45)
[2020-06-29] MEDS: LACTULOSE 20Gm/30ML SOLN PO SCH ×3 (14:04→22:14)
[2020-06-29 17:18] VITALS: BP 106/71
--- NOTE | 2020-06-29 19:15 | NUR ---
Received pt. in bed resting, calm and quiet. Pt. in Room Air, breathing regular, even and unlabored. Lungs are clear. No s/s of chest pain. Pt. oriented x1, confused and forgetful. Sitter @ the bedside.
--- NOTE | 2020-06-29 19:34 | NUR ---
Pt. SR @ the Tele Box # 60 @ 100 per minute. Pt. @ the 90's to 100 @ the monitor.
--- NOTE | 2020-06-29 20:00 | NUR ---
Complete assessment done. Keep pt. safe and comfortable in bed.
[2020-06-29 22:00] VITALS: BP 84/64
--- NOTE | 2020-06-29 22:00 | NUR ---
Pt. given complete bedbath and changed all bed linens. Pt. clean, dry, warm and comfortable in bed after complete or total bedbath given with the help of the sitter. Pt. able to move BM x 1 large in liquid and diarrhea @ 2130 PM. Complete bedbath given @ 2200 Pm.
[2020-06-29] MEDS: levETIRAcetam 500 MG TAB PO SCH (22:14)
--- NOTE | 2020-06-29 22:14 | NUR ---
Meds. as scheduled given to the pt. Health teaching provided to the pt. about the mechanism of action of these due meds. Pt. verb. partial understanding, will reenforce more health teachings each time due meds. given. Pt. able to swallow whole pills without difficulty with the HOB UP @ 45 degrees angle.
[2020-06-29] MEDS: rifAXIMin 550 MG TAB PO SCH (22:26)
[2020-06-30] VITALS (7 sets, daily range): BP systolic 86–91; BP diastolic 54–66
[2020-06-30] MEDS: LACTULOSE 20Gm/30ML SOLN PO SCH ×6 (00:53→22:25)
--- NOTE | 2020-06-30 00:55 | NUR ---
Pt. is sleeping and calm @ this time. No s/s of agitation. Pt. comfortable. SR @ the monitor.
--- NOTE | 2020-06-30 02:30 | NUR ---
Pt. is sleeping and resting undisturbed. SR @ the monitor. No verb. of pain from the pt. Sitter @ the bedside continuously watch pt. safety in bed. Worked with the sitter.
--- NOTE | 2020-06-30 04:00 | NUR ---
Pt. sleeping and resting quietly. No s/s of agitation or anxiety. Keep pt. safe, warm and comfortable in bed. Sitter @ the bedside. SR @ the monitor. Bed locked in low position, side rails up x 2-3 and HOB UP @ 35 degrees angle.
--- NOTE | 2020-06-30 05:00 | NUR ---
Pt. BP @ the low 86/64 , HR = 81/min. Called/paged [facility] List through the [facility] Importer Exporter, awaiting return call of Hospital List covering MD/TIGER MACHINE OPERATOR.
--- NOTE | 2020-06-30 05:30 | NUR ---
Called/paged again Hospital [facility] to notify low BP of 88/57 . Awaiting return call of covering Hospital List.
[2020-06-30] MEDS: FUROSEMIDE 20 MG TAB PO SCH ×2 (06:00→18:27)
--- NOTE | 2020-06-30 06:00 | NUR ---
Hold Lasix po. due med. due to low BP of 88/57.
[2020-06-30 06:52] LABS: INR 3.15 (0.9-1.15)
[2020-06-30 06:58] LABS: Potassium 3.1 mmol/L (3.5-5.1)
[2020-06-30 07:10] LABS: Albumin 1.4 g/dL (3.4-5.0); BUN/Creatinine Ratio 15.4; Bilirubin, Total 18.4 mg/dL (0.2-1.0); Magnesium 2.2 mg/dL (1.6-2.6); Total Protein 6.2 g/dL (6.4-8.2)
--- NOTE | 2020-06-30 07:30 | NUR ---
Gave report to the Day Shift SHAYY Escobedo.
[2020-06-30] MEDS: THIAMINE 100mg/ml INJ (200mg/2ml VIAL) IV SCH (08:51)
[2020-06-30] MEDS: FOLIC ACID 1 MG TAB PO SCH (08:52)
[2020-06-30] MEDS: PANTOPRAZOLE 40 MG TAB PO SCH (08:52)
[2020-06-30] MEDS: levETIRAcetam 500 MG TAB PO SCH ×2 (08:52→22:25)
[2020-06-30] MEDS: rifAXIMin 550 MG TAB PO SCH ×2 (08:52→22:25)
[2020-06-30] MEDS: MULTIPLE VITAMINS W/ MINERALS TAB PO SCH (08:52)
[2020-06-30] MEDS: SPIRONOLACTONE 25 MG TAB PO SCH (10:00)
--- NOTE | 2020-06-30 12:21 | NUR ---
THE CHARTING AT 1212 IS FOR 0800
[2020-06-30] MEDS ORDERED: POTASSIUM CHL 20 Meq TABLET PO ONE (15:45)
[2020-06-30] MEDS ORDERED: cefTRIAXone 1GM/50ML D5W 50 ML IV ONE (15:45)
--- NOTE | 2020-06-30 20:00 | NUR ---
Opening Shift Note Assumed care of patient, awake and alert. No S/S of distress/SOB or pain. Instructed on POC and to call for assist PRN, will continue to monitor for changes Q1hr and PRN. Bed in low position; sitter at bedside.
[2020-07-01] MEDS: LACTULOSE 20Gm/30ML SOLN PO SCH ×6 (00:04→20:48)
--- NOTE | 2020-07-01 04:30 | NUR ---
Patient awake with increased restlessness. Medicated with Librium 25 mg orally.
[2020-07-01] MEDS: chlordiazePOXIDE HCL 25 MG CAP PO PRN (04:39)
[2020-07-01 05:00] VITALS: BP 90/61
[2020-07-01] MEDS: FUROSEMIDE 20 MG TAB PO SCH ×2 (06:00→17:27)
[2020-07-01 06:43] LABS: BUN/Creatinine Ratio 18.1
--- NOTE | 2020-07-01 06:58 | NUR ---
Patient resting comfortably. No acute distress noted. Sitter remains at bedside. Will endorse patient's status to day shift RN.
[2020-07-01 08:00] VITALS: BP 95/68
[2020-07-01] MEDS: SPIRONOLACTONE 25 MG TAB PO SCH (08:40)
[2020-07-01] MEDS: MULTIPLE VITAMINS W/ MINERALS TAB PO SCH (08:41)
[2020-07-01] MEDS: levETIRAcetam 500 MG TAB PO SCH ×2 (08:41→21:41)
[2020-07-01] MEDS: PANTOPRAZOLE 40 MG TAB PO SCH (08:41)
[2020-07-01] MEDS: FOLIC ACID 1 MG TAB PO SCH (08:41)
[2020-07-01] MEDS ORDERED: POTASSIUM EFFERVESENT TAB 25 MEQ PO ONE (08:45)
[2020-07-01 09:00] VITALS: BP 95/68
[2020-07-01] MEDS: cefTRIAXone 1GM/50ML D5W 50 ML IV SCH (09:25)
[2020-07-01] MEDS: rifAXIMin 550 MG TAB PO SCH ×2 (10:00→21:42)
[2020-07-01] MEDS: THIAMINE 100mg/ml INJ (200mg/2ml VIAL) IV SCH (10:00)
[2020-07-01] MEDS: Ensure HIGH Protein Chocolate 8oz Bottle PO SCH ×2 (12:49→17:27)
[2020-07-01 13:00] VITALS: BP 98/67
[2020-07-01] MEDS ORDERED: CLINIMIX PER PHARMACY 0 ML IV SCH (15:45)
[2020-07-01 17:00] VITALS: BP 92/63
[2020-07-01] MEDS ORDERED: POTASSIUM PHOSPHATE 22 MEQ in SODIUM CHL 0.9% 100 ML IV ONE (17:00)
[2020-07-01] MEDS: InsuLIN REG 1unit/0.01ml Soln (100units/ml) SC SCH (17:28)
[2020-07-01] MEDS: ACCU-CHEK COMFORT CURVE STRIP VI SCH (17:28)
[2020-07-01] MEDS ORDERED: DEXTROSE (50%) 50ML SYRG IV SCH (18:00)
[2020-07-01] MEDS ORDERED: AMINO ACID INFUSION IN D5W 2,000 ML IV NR (20:00)
[2020-07-01 22:00] VITALS: BP 97/70
[2020-07-02] MEDS: ACCU-CHEK COMFORT CURVE STRIP VI SCH ×4 (00:56→17:19)
[2020-07-02] MEDS: LACTULOSE 20Gm/30ML SOLN PO SCH ×6 (01:13→20:48)
[2020-07-02] MEDS: chlordiazePOXIDE HCL 25 MG CAP PO PRN (01:13)
[2020-07-02 05:00] VITALS: BP 93/64
[2020-07-02 05:45] LABS: Basophils # (auto) 0 10 ^3/uL (0-0.2); Basophils % (auto) 0.2 % (0.0-2.0); Eosinophils # (auto) 0 10 ^3/uL (0-0.8); Eosinophils % (auto) 0.2 % (0.0-7.0); Hematocrit 42.8 % (41.0-53.0); Hemoglobin 14.6 g/dL (13.5-17.5); Lymphocytes # (auto) 0.6 10 ^3/uL (0.4-5.4); Lymphocytes % (auto) 4.3 % (10.0-50.0); Mean Corpuscular Hemoglobin 37.6 pg (28.0-32.0); Mean Corpuscular Hgb Conc. 34.1 g/dL (32.0-36.0); Mean Corpuscular Volume 110.3 fL (80.0-100.0); Monocytes # (auto) 1.4 10 ^3/uL (0-1.3); Monocytes % (auto) 10.5 % (0.0-12.0); Neutrophils # (auto) 11.7 10 ^3/uL (1.6-8.6); Neutrophils % (auto) 84.8 % (37.0-80.0); Nucleated Red Blood Cells % 0.1 %; Platelet Count (auto) 139 10^3/uL (140-450); Red Blood Cells 3.88 10^6/uL (4.5-5.90); Red Cell Distribution Width 14.4 % (11.8-14.3); White Blood Cell 13.8 10^3/uL (4.4-10.8)
[2020-07-02] MEDS: FUROSEMIDE 20 MG TAB PO SCH ×2 (05:52→17:28)
[2020-07-02] MEDS: InsuLIN REG 1unit/0.01ml Soln (100units/ml) SC SCH ×4 (06:14→17:29)
[2020-07-02 06:29] LABS: Albumin 1.3 g/dL (3.4-5.0); Magnesium 2.3 mg/dL (1.6-2.6); Potassium 3.4 mmol/L (3.5-5.1)
[2020-07-02 06:35] LABS: BUN/Creatinine Ratio 15.9; Bilirubin, Total 20.4 mg/dL (0.2-1.0); Phosphorus 3.3 mg/dL (2.5-4.90); Pre Albumin 4.9 mg/dL (20.0-40.0); Total Protein 6.3 g/dL (6.4-8.2)
--- NOTE | 2020-07-02 07:41 | NUR ---
Opening Note Assumed pt care from CRYSTAL RN. Pt is a/xo1; responds to name. Sitter is present in room for safety. Pt is currently laying in bed with no complaints at this time. Safety measures maintained with call light within reach, bed in lowest position and side rails up. Will continue to monitor.
[2020-07-02] MEDS: Ensure HIGH Protein Chocolate 8oz Bottle PO SCH ×3 (07:50→18:00)
[2020-07-02] MEDS: THIAMINE 100mg/ml INJ (200mg/2ml VIAL) IV SCH (08:48)
[2020-07-02] MEDS: cefTRIAXone 1GM/50ML D5W 50 ML IV SCH (08:48)
[2020-07-02] MEDS: SPIRONOLACTONE 25 MG TAB PO SCH (09:00)
[2020-07-02] MEDS: levETIRAcetam 500 MG TAB PO SCH ×2 (09:13→22:56)
[2020-07-02] MEDS: FOLIC ACID 1 MG TAB PO SCH (09:13)
[2020-07-02] MEDS: MULTIPLE VITAMINS W/ MINERALS TAB PO SCH (09:13)
[2020-07-02] MEDS: PANTOPRAZOLE 40 MG TAB PO SCH (09:14)
[2020-07-02] MEDS: rifAXIMin 550 MG TAB PO SCH ×2 (09:14→22:56)
[2020-07-02 10:14] LABS: Hepatitis B Surface Antibody Negative
[2020-07-02 10:44] LABS: Hepatitis A Total Antibody Negative
--- NOTE | 2020-07-02 11:10 | NUR ---
Dr Mahmood at Bedside MD to see pt. Discussed POC. Requests that PT attempt to ambulate the patient. Will implement and continue to monitor.
[2020-07-02] MEDS ORDERED: POTASSIUM PHOSPHATE 22 MEQ in SODIUM CHL 0.9% 100 ML IV ONE (12:00)
[2020-07-02 12:45] LABS: Hepatitis B Core Total AB Negative
[2020-07-02 12:46] LABS: Hepatitis B Surface Antigen Negative (Negative); Hepatitis C Antibody Negative (Negative)
[2020-07-02 13:00] VITALS: BP 110/70
--- NOTE | 2020-07-02 15:07 | NUR ---
Nutrition Assessment Notes Please refer to link for full assessment notes. Est Energy needs: [id number] kcals (25-30 kcal/kgBW) Est Protein needs: 59-74 gms/day (0.8-1.0 gm/kgBW) Will continue to monitor and reassess prn. Addendum: 07/02/20 at [address] Amended: Links added.
[2020-07-02 16:48] VITALS: BP 110/70
[2020-07-02 16:54] VITALS: BP 103/69
[2020-07-02] MEDS ORDERED: AMINO ACID INFUSION IN D5W 2,000 ML IV NR (20:00)
[2020-07-03] MEDS: LACTULOSE 20Gm/30ML SOLN PO SCH ×6 (00:34→20:31)
[2020-07-03] MEDS: InsuLIN REG 1unit/0.01ml Soln (100units/ml) SC SCH ×4 (00:43→17:32)
[2020-07-03 05:49] LABS: Basophils # (auto) 0.1 10 ^3/uL (0-0.2); Eosinophils # (auto) 0.1 10 ^3/uL (0-0.8); Lymphocytes # (auto) 0.9 10 ^3/uL (0.4-5.4); White Blood Cell 17.4 10^3/uL (4.4-10.8)
[2020-07-03 05:52] LABS: Basophils % (auto) 0.3 % (0.0-2.0); Eosinophils % (auto) 0.6 % (0.0-7.0); Hematocrit 41.9 % (41.0-53.0); Hemoglobin 14.1 g/dL (13.5-17.5); Lymphocytes % (auto) 5.2 % (10.0-50.0); Mean Corpuscular Hemoglobin 36.9 pg (28.0-32.0); Mean Corpuscular Hgb Conc. 33.7 g/dL (32.0-36.0); Mean Corpuscular Volume 109.4 fL (80.0-100.0); Monocytes % (auto) 11.7 % (0.0-12.0); Neutrophils # (auto) 14.3 10 ^3/uL (1.6-8.6); Neutrophils % (auto) 82.2 % (37.0-80.0); Platelet Count (auto) 150 10^3/uL (140-450); Red Blood Cells 3.83 10^6/uL (4.5-5.90); Red Cell Distribution Width 14.6 % (11.8-14.3)
[2020-07-03 06:00] VITALS: BP 103/70
[2020-07-03] MEDS: FUROSEMIDE 20 MG TAB PO SCH ×2 (06:00→17:12)
[2020-07-03 06:05] LABS: INR 3.27 (0.9-1.15)
[2020-07-03] MEDS: ACCU-CHEK COMFORT CURVE STRIP VI SCH ×4 (06:10→17:31)
[2020-07-03 06:15] LABS: Potassium 3.4 mmol/L (3.5-5.1)
[2020-07-03 06:22] LABS: Albumin 1.4 g/dL (3.4-5.0); BUN/Creatinine Ratio 22.2; Bilirubin, Total 19.1 mg/dL (0.2-1.0); Calcium 8.3 mg/dL (8.5-10.1); Magnesium 2.2 mg/dL (1.6-2.6); Phosphorus 2.7 mg/dL (2.5-4.90); Total Protein 6.1 g/dL (6.4-8.2)
--- NOTE | 2020-07-03 07:14 | NUR ---
End of Shift Note Endorsed care to dayshift RN. At this time patient has no s/s of distress or SOB.
--- NOTE | 2020-07-03 07:50 | NUR ---
Opening Note Assumed pt care from CRYSTAL RN. Pt is a/ox1-2; pt is able to respond to name and answer some questions. Sitter is present in room. Pt is currently sitting upright in bed with no complaints at this time. Discussed POC with pt. Safety measures maintained with call light within reach, bed in lowest position and side rails up. Will continue to monitor for changes.
[2020-07-03] MEDS: Ensure HIGH Protein Chocolate 8oz Bottle PO SCH ×3 (08:00→17:31)
[2020-07-03] MEDS: cefTRIAXone 1GM/50ML D5W 50 ML IV SCH (08:29)
[2020-07-03] MEDS: THIAMINE 100mg/ml INJ (200mg/2ml VIAL) IV SCH (08:56)
[2020-07-03] MEDS: PANTOPRAZOLE 40 MG TAB PO SCH (08:56)
[2020-07-03] MEDS: rifAXIMin 550 MG TAB PO SCH ×2 (08:56→21:51)
[2020-07-03] MEDS: MULTIPLE VITAMINS W/ MINERALS TAB PO SCH (08:56)
[2020-07-03] MEDS: FOLIC ACID 1 MG TAB PO SCH (08:57)
[2020-07-03] MEDS: SPIRONOLACTONE 25 MG TAB PO SCH (08:57)
[2020-07-03] MEDS: levETIRAcetam 500 MG TAB PO SCH ×2 (08:57→21:51)
[2020-07-03 09:00] VITALS: BP 113/72
--- NOTE | 2020-07-03 10:17 | NUR ---
Dr Mahmood at Bedside MD to see pt. Discussed pending social service consult for hospice evaluation. MD requests updates regarding hospice status for possible d/c orders. Will implement and continue to monitor.
[2020-07-03] MEDS ORDERED: POTASSIUM PHOSPHATE 44 MEQ in D5W 5% 250 ML IV ONE (11:00)
[2020-07-03 13:00] VITALS: BP 102/77
[2020-07-03 17:00] VITALS: BP 94/59
[2020-07-03] MEDS ORDERED: AMINO ACID INFUSION IN D5W 2,000 ML IV NR (20:00)
[2020-07-03 22:03] VITALS: BP 108/69
[2020-07-04] MEDS: LACTULOSE 20Gm/30ML SOLN PO SCH ×5 (00:53→16:30)
[2020-07-04] MEDS: InsuLIN REG 1unit/0.01ml Soln (100units/ml) SC SCH ×3 (01:10→12:00)
[2020-07-04 05:00] VITALS: BP 91/55
[2020-07-04] MEDS: FUROSEMIDE 20 MG TAB PO SCH (05:26)
[2020-07-04] MEDS: ACCU-CHEK COMFORT CURVE STRIP VI SCH ×3 (05:27→12:00)
[2020-07-04 06:31] LABS: Urine Bacteria FEW /hpf (None Seen); Urine Blood Negative /uL (Negative); Urine Hyaline Cast FEW /lpf (0 - 2); Urine Mucus FEW (None Seen); Urine Specific Gravity 1.021 (1.001-1.035); Urine WBC 4 /hpf (0 - 3)
[2020-07-04 07:16] LABS: Basophils # (auto) 0.1 10 ^3/uL (0-0.2); Basophils % (auto) 0.6 % (0.0-2.0); Eosinophils # (auto) 0.1 10 ^3/uL (0-0.8); Hemoglobin 14.1 g/dL (13.5-17.5); Nucleated Red Blood Cells % 0.1 %
[2020-07-04 07:19] LABS: Hematocrit 41.2 % (41.0-53.0); Lymphocytes % (auto) 7.1 % (10.0-50.0); Mean Corpuscular Hemoglobin 36.8 pg (28.0-32.0); Mean Corpuscular Hgb Conc. 34.2 g/dL (32.0-36.0); Mean Corpuscular Volume 107.5 fL (80.0-100.0); Monocytes # (auto) 1.7 10 ^3/uL (0-1.3); Monocytes % (auto) 11.7 % (0.0-12.0); Neutrophils # (auto) 11.8 10 ^3/uL (1.6-8.6); Neutrophils % (auto) 79.6 % (37.0-80.0); Platelet Count (auto) 139 10^3/uL (140-450); Red Blood Cells 3.84 10^6/uL (4.5-5.90); Red Cell Distribution Width 14.4 % (11.8-14.3); White Blood Cell 14.8 10^3/uL (4.4-10.8)
--- NOTE | 2020-07-04 07:20 | NUR ---
End of Shift Note Endorsed care to dayshift RN. At this time patient has no s/s of distress or SOB.
[2020-07-04 07:37] LABS: Potassium 3.4 mmol/L (3.5-5.1)
[2020-07-04 07:53] LABS: Albumin 1.4 g/dL (3.4-5.0); BUN/Creatinine Ratio 27.8; Bilirubin, Total 17.4 mg/dL (0.2-1.0); Calcium 8.1 mg/dL (8.5-10.1); Phosphorus 2.5 mg/dL (2.5-4.90); Total Protein 6.3 g/dL (6.4-8.2)
[2020-07-04 08:40] VITALS: BP 91/67
--- NOTE | 2020-07-04 08:49 | NUR ---
Assessment Patient is a 59-year-old male who is confused. Assessment was completed with patient Lainey ). Per Lainey patient condition started declining 2 weeks prior to being admitted to the hospital. Per Lainey prior to the two weeks patient was alert and oriented and functioned independently. Per Lainey patient did not use any medical equipment or home oxygen. Per Lainey patient will return to his prior living arrangements post discharge. Advised Lainey there is a social service consult for hospice evaluation. Per Lainey doctor spoke to her in regards of hospice. Information and choice letter was given to Lainey via phone. Lainey does not have a hospice preference. Informed Lainey clinical information will be faxed to [facility] and they will contact her to arrange everything for patient. Informed Lainey she has the right to participate in all discharge planning. Lainey verbalized understanding. Faxed clinical information to [facility]. Per Alexa with [facility] Lainey has agreed with them servicing patient care and they will see patient upon d/c day. Once [facility] arranges medical equipment transportation will be arrange. Addendum: 07/04/20 at 0852 by ARMANDO LEIGH Amended: Links added.
[2020-07-04] MEDS: cefTRIAXone 1GM/50ML D5W 50 ML IV SCH (09:00)
--- NOTE | 2020-07-04 09:20 | NUR ---
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 SHAYY Burnette was informed.
[2020-07-04] MEDS ORDERED: POTASSIUM PHOSPHATE 44 MEQ in D5W 5% 250 ML IV ONE (09:45)
[2020-07-04] MEDS: rifAXIMin 550 MG TAB PO SCH (10:00)
[2020-07-04] MEDS: SPIRONOLACTONE 25 MG TAB PO SCH (10:00)
[2020-07-04] MEDS: THIAMINE 100mg/ml INJ (200mg/2ml VIAL) IV SCH (10:00)
[2020-07-04] MEDS: PANTOPRAZOLE 40 MG TAB PO SCH (10:23)
[2020-07-04] MEDS: MULTIPLE VITAMINS W/ MINERALS TAB PO SCH (10:23)
[2020-07-04] MEDS: levETIRAcetam 500 MG TAB PO SCH (10:23)
[2020-07-04] MEDS: FOLIC ACID 1 MG TAB PO SCH (10:23)
[2020-07-04] MEDS: Ensure HIGH Protein Chocolate 8oz Bottle PO SCH ×2 (10:45→12:00)
[2020-07-04 13:00] VITALS: BP 88/46
[2020-07-04] MEDS ORDERED: THIA100T5 PO (13:13)
[2020-07-04] MEDS ORDERED: SPIR25TA88 PO (13:13)
[2020-07-04] MEDS ORDERED: MULT-351 PO (13:13)
[2020-07-04] MEDS ORDERED: FOLI1TAB6 PO (13:13)
[2020-07-04] MEDS ORDERED: PANT40T PO (13:13)
[2020-07-04] MEDS ORDERED: FURO1TAB33 PO (13:13)
--- NOTE | 2020-07-04 16:00 | NUR ---
PT'S NOTES PT'S LACTULOSE DOSES HAS BEEN HELD DUE TO PT'S FREQUENT AND LARGE, LOOSE BOWEL MOVEMENT ALMOST EVERY HOUR.
--- NOTE | 2020-07-04 17:00 | NUR ---
Discharge instructions given TO PT'S , LIBBY OVER THE PHONE as ordered. Encourage to follow up with PMD as instructed. All questions and concerns addressed. Patient verbalized understanding. Medication reconciliation form completed and copy given to patient. IV removed with catheter intact, pressure dressing applied. Telemetry unit returned to ICU. Patient taken to vehicle via wheelchair with all personal belongings, accompanied by staff and family member. No distress noted at time of departure. Addendum: 07/04/20 at 1707 by Yomaira Clark RN ADDENDUM PT SENT HOME WITH A DIAPER IN PLACE. PT IS STILL HAVING LOOSE BM. IS AWARE.
[2020-07-04] MEDS ORDERED: CLINIMIX PER PHARMACY IV NR (20:00)
== END 2020-07-04 17:10 | disposition hospice, home (50) | DRG 441 ==
LOC: EDBD 15:13 → ER 15:13 → TELE 15:14 → TELE-WESTW 21:06
PROVIDERS: ADMIT Internal Medicine; ATTEND Internal Medicine
DX: K72.00 Acute and subacute hepatic failure without coma (principal); E43 Unspecified severe protein-calorie malnutrition; G93.41 Metabolic encephalopathy; E87.1 Hypo-osmolality and hyponatremia; D68.4 Acquired coagulation factor deficiency; K70.31 Alcoholic cirrhosis of liver with ascites; F03.90 Unspecified dementia, unspecified severity, without behavioral disturbance, psychotic disturbance, mood disturbance, and anxiety; I95.9 Hypotension, unspecified; E87.6 Hypokalemia; Z86.73 Personal history of transient ischemic attack (TIA), and cerebral infarction without residual deficits; F10.10 Alcohol abuse, uncomplicated; Z91.19 Patient's noncompliance with other medical treatment and regimen; Z68.22 Body mass index [BMI] 22.0-22.9, adult; E78.5 Hyperlipidemia, unspecified; F17.210 Nicotine dependence, cigarettes, uncomplicated; I10 Essential (primary) hypertension; K76.0 Fatty (change of) liver, not elsewhere classified; N20.0 Calculus of kidney; Z82.3 Family history of stroke; Z91.14 Patient's other noncompliance with medication regimen; Z86.69 Personal history of other diseases of the nervous system and sense organs; Y90.0 Blood alcohol level of less than 20 mg/100 ml
CPT/HCPCS: 36415; 71045; 74176; 76705; 80048; 80053; 80307; 80320; 81001; 82040; 82140; 82150; 82550; 82962; 83690; 83735; 83880; 84100; 84478; 84484; 85025; 85610; 85730; 86704; 86706; 86708; 86803; 87040; 87086; 87340; 93005; 96361; 96365; 96366; 96375; G0378; J0696; J1815; J3490; J7060